=== PATIENT | male | born 1960 | race Caucasian/White ===

== ENCOUNTER → 2019-09-22 07:41 | Outpatient (CLI) | payer OTHER, SELFPAY ==
[2019-09-05 11:10] VITALS: BMI 34.4
--- NOTE | 2019-09-22 07:43 | ECHOD_ITS ---
Reason For Study: Le Edema Procedure This was a 2D Doppler, Color Flow transthoracic echocardiogram. Exam performed in department. Left Ventricle Normal LV size. The estimated ejection fraction is 50 %. No evidence for diastolic dysfunction. No regional wall motion abnormalities noted. Right Ventricle Normal RV size. Normal systolic function. Atria The left atrium is mildly enlarged. Normal right atrium. No doppler evidence for ASD. Mitral Valve There is no mitral valve stenosis. No mitral valve insufficiency. Tricuspid Valve There is no tricuspid stenosis. Trivial eccentric tricuspid valve insufficiency. Unable to estimate RV systolic pressure due to insufficient tricuspid regurgitant envelope. Aortic Valve Trisinus/trileaflet aortic valve. There is no aortic stenosis. No aortic valve insufficiency. Pulmonic Valve There is no pulmonic valvular stenosis. No pulmonic valve insufficiency. Great Vessels Normal aortic root. Pericardium/Pleural No pericardial effusion. MMode/2D Measurements & Calculations LVIDd: 6.2 cm IVSd: 1.1 cm LA dimension: 3.2 cm LVIDs: 4.4 cm LVPWd: 0.90 cm RVDd: 3.2 cm FS: 29.1 % LAV(MOD-bp): 72.4 ml LVAd ap4: 40.8 cm2 SV(MOD-sp4): 75.9 ml LAV(MOD-bp) Indexed: 30.5 ml/m2 EDV(MOD-sp4): 160.8 ml LAV(MOD-sp2): 71.3 ml EDV(sp4-el): 169.7 ml LAV(MOD-sp4): 65.7 ml LVAs ap4: 25.7 cm2 ESV(MOD-sp4): 84.9 ml ESV(sp4-el): 83.3 ml EF(MOD-sp4): 47.2 % EF(sp4-el): 50.9 % SV(sp4-el): 86.4 ml LA A4 area: 22.2 cm2 RA A4 area: 14.7 cm2 Time Measurements MV dec time: 0.24 sec Doppler Measurements & Calculations MV E max kartik: 59.2 cm/sec Lat Peak E' Kartik: 8.7 cm/sec Med Peak E' Kartik: 8.5 cm/sec MV A max kartik: 84.3 cm/sec E/E' lat: 6.8 E/E' med: 7.0 MV E/A: 0.70 MV V2 max: 100.4 cm/sec MV P1/2t max kartik: 80.0 cm/sec Ao V2 max: 119.0 cm/sec MV max P.0 mmHg MV P1/2t: 145.5 msec Ao max P.7 mmHg MV V2 mean: 54.3 cm/sec Ao V2 mean: 82.4 cm/sec MV mean P.4 mmHg MV dec slope: 161.1 cm/sec2 Ao mean P.0 mmHg MV V2 VTI: 29.8 cm MVA(P1/2t): 1.5 cm2 Ao V2 VTI: 22.6 cm LV V1 max: 111.1 cm/sec PA V2 max: 118.5 cm/sec LV V1 max P.9 mmHg LV V1 mean P.3 mmHg LV V1 mean: 70.3 cm/sec LV V1 VTI: 22.5 cm Interpretation Summary The estimated ejection fraction is 50 %. No evidence for diastolic dysfunction. The left atrium is mildly enlarged. Ordering Physician: Christiana Ellis Referring Physician: Christiana Ellis Performed By: Donovan Clark [facility]
== END ==
PROVIDERS: Referring Provider Specialist; Visit Provider Specialist
DX: I25.10 Atherosclerotic heart disease of native coronary artery without angina pectoris (principal); I42.9 Cardiomyopathy, unspecified
CPT/HCPCS: 93306

== ENCOUNTER → 2022-12-22 | Outpatient (CLI) | payer OTHER, SELFPAY ==
[2022-12-22 10:40] LABS: AST(SGOT) 17 U/L (15-37); Alanine Aminotransfer ALT/SGPT 23 U/L (16-61); Albumin, Serum 3.6 g/dL (3.2-5.0); Alkaline Phosphatase 54 U/L (45-117); Bilirubin, Direct 0.17 mg/dL (0.00-0.30); Cholesterol 95 mg/dL (200); Globulin 3.4 g/dL (2.2-4.2); High Density Lipoprotein 36 mg/dL; Triglycerides 112 mg/dL; Very Low Density Lipoprotein 22 mg/dL (5-40)
== END | disposition home or self-care (01) ==
PROVIDERS: Referring Provider Nurse Practitioner Family; Visit Provider Nurse Practitioner Family
DX: E78.5 Hyperlipidemia, unspecified (principal)
CPT/HCPCS: 36415; 80061; 80076